=== PATIENT | male | born 1960 | race Caucasian/White ===

== ENCOUNTER 2021-05-11 07:57 | Day surgery (SDC) | payer BC, OTHER ==
[~2021-05-11] VITALS: Ht 175.3 cm; Wt 80.9 kg
[2021-05-11 08:34] VITALS: BP 131/93; PULSE 70; TEMP 97.2
[2021-05-11 09:40] VITALS: BP 115/83; PULSE 78; TEMP 97
--- NOTE | 2021-05-11 09:40 | NUR ---
The patient arrived back to [facility] from the endoscopy suite at this time. The patient appears drowsy but arouses easily to his name. The patient ambulated from the cart to the recliner in his room with the stand by assistance of two nurses and appeared to tolerate the activity well. Vital signs started at this time. Call light is within reach. at bedside. The patient agrees to try some water. Will continue to monitor the patient.
[2021-05-11 09:55] VITALS: BP 111/79; PULSE 58
--- NOTE | 2021-05-11 09:55 | NUR ---
The patient appears to be tolerating the water well and denies wanting anything furthter at this time. The patient's vital signs appear stable. Dr. Dallas is at the patient's bedside discussing the findings of the procedure.
[2021-05-11 10:10] VITALS: BP 121/85; PULSE 60
--- NOTE | 2021-05-11 10:10 | NUR ---
Discharge instructions were reviewed with the patient and his at this time. They both verbalized understanding and have no questions for the nurse at this time. The patient's IV to his right hand was removed and the patient was instructed to get dressed and notify the staff when he is ready to be escorted out.
--- NOTE | 2021-05-11 10:15 | NUR ---
The patient was escorted out via wheelchair to a private vehicle by CHETNA Turner. The patient's belongings and discharge paperwork were sent with him. The patient's is present to drive him home.
== END 2021-05-11 10:15 | disposition home or self-care (01) ==
LOC: SDCO 07:57
DX: Z12.11 Encounter for screening for malignant neoplasm of colon (principal); D12.2 Benign neoplasm of ascending colon; D12.5 Benign neoplasm of sigmoid colon; K57.30 Diverticulosis of large intestine without perforation or abscess without bleeding; R51.9 Headache, unspecified; Z86.010 Personal history of colon polyps
CPT/HCPCS: J2704; J3010; J7030